=== PATIENT | male | born 1980 | race Caucasian/White ===

== ENCOUNTER → 2018-04-06 | Outpatient (CLI) | payer OTHER ==
[~2018-04-06] MED LIST: NONE PER PT
[2018-04-06 09:30] LABS: BASOPHILS # (AUTO) 0.04 x10^3/uL (0-0.1); BASOPHILS % (AUTO) 1 % (0-1); EOSINOPHILS % (AUTO) 3 % (1-7); LYMPHOCYTES # (AUTO) 2.54 x10^3/uL (1-3.4); LYMPHOCYTES % (AUTO) 38 % (22-44); MD NO; MEAN CORPUSCULAR HEMOGLOBIN 30.4 pg (27.5-34.5); MEAN CORPUSCULAR HGB CONC 34.1 g/dL (33.2-36.2); MEAN CORPUSCULAR VOLUME 89.1 fL (81-97); MEAN PLATELET VOLUME 8.4 fL (7.4-10.4); MONOCYTES # (AUTO) 0.46 x10^3/uL (0.2-0.8); MONOCYTES % (AUTO) 7 % (2-9); NEUTROPHILS % (AUTO) 51 % (42-75); PLATELET COUNT 229 x10^3/uL (130-400); RED BLOOD COUNT 5.28 x10^6/uL (4.38-5.82); RED CELL DISTRIBUTION WIDTH 13.6 % (9.4-14.8)
[2018-04-06 09:40] LABS: INTERNATIONAL NORMALIZED RATIO 1.01 (0.93-1.1); PROTHROMBIN TIME 10.7 Seconds (9.6-11.5)
[2018-04-06 09:42] LABS: ANION GAP 7 mmol/L (5-15); CHLORIDE 109 mmol/L (98-107); CREATININE 1.08 mg/dL (0.7-1.3)
== END | disposition home or self-care (01) ==
LOC: STAR 08:42
PROVIDERS: ATTEND Neurological Surgery
DX: Z01.818 Encounter for other preprocedural examination (principal); M48.062 Spinal stenosis, lumbar region with neurogenic claudication
CPT/HCPCS: 36415; 71046; 80048; 85025; 85610; 85730; 93005

== ENCOUNTER 2018-04-20 07:09 | Day surgery (SDC) | payer OTHER ==
[~2018-04-20] VITALS: Ht 175.3 cm; Wt 102.0 kg
[~2018-04-20 07:09] MED LIST changes: +BACITRACIN 50,000 UNIT ONE; +BUPIVACAINE/PF-EPI 0.5% 1:200K ONE; +THROMBIN 5,000 UNIT VIAL TP ONE
[2018-04-20] MEDS ORDERED: LACTATED RINGERS 1,000 ML IV SCH (07:44)
[2018-04-20 07:50] VITALS: BP 141/86
[2018-04-20] MEDS ORDERED: ACETAMINOPHEN 500 MG TABLET PO ONE (08:00)
[2018-04-20] MEDS ORDERED: SCOPOLAMINE PATCH, 1.5MG PATCH.TD72 TD ONE (08:00)
[2018-04-20] MEDS ORDERED: GABAPENTIN 300 MG CAPSULE PO ONE (08:00)
[2018-04-20] MEDS ORDERED: OxyconTIN ER 20 MG TAB.ER PO ONE (08:00)
[2018-04-20] MEDS ORDERED: FENTANYL PF 250 MCG/5ML ONE (09:33)
[2018-04-20] MEDS ORDERED: MIDAZOLAM 1 MG/ML, 2ML ONE (09:33)
[2018-04-20] MEDS ORDERED: ROCURONIUM 10MG/ML,5ML ONE (09:39)
[2018-04-20] MEDS ORDERED: CEFAZOLIN 1,000 MG ONE (09:39)
[2018-04-20] MEDS ORDERED: PROPOFOL 10 MG/ML, 20ML ONE (09:39)
[2018-04-20] MEDS ORDERED: ONDANSETRON 2MG/ML, 2ML ONE (09:39)
[2018-04-20] MEDS ORDERED: DEXAMETHASONE 4 MG/ML, 5ML ONE (09:39)
[2018-04-20] MEDS ORDERED: NEOSTIGMINE 1 MG/ML, 10ML ONE (10:12)
[2018-04-20] MEDS ORDERED: GLYCOPYRROLATE 0.2MG/1ML, 5ML ONE (10:12)
[2018-04-20] MEDS ORDERED: OXYcodone 5 MG/5 ML ORAL.SOL UDC PO PRN (11:00)
[2018-04-20] MEDS ORDERED: FENTANYL PF 100 MCG/2ML IV PRN (11:00)
[2018-04-20] MEDS ORDERED: MEPERIDINE/PF 25MG/0.5ML IVPush PRN (11:00)
[2018-04-20] MEDS ORDERED: HALOPERIDOL 5 MG/ML IV PRN (11:00)
[2018-04-20] MEDS ORDERED: HYDROmorphone 2 MG/ML, 1ML IVPush PRN (11:00)
[2018-04-20] MEDS ORDERED: DIAZEPAM 5 MG/ML, 2ML IVPush PRN (11:00)
[2018-04-20] MEDS ORDERED: hydrALAzine 20 MG/ML, 1ML IV PRN (11:00)
[2018-04-20] MEDS ORDERED: PROMETHAZINE 25 MG/ML, 1ML IV PRN (11:00)
[2018-04-20] MEDS ORDERED: HYDROmorphone 2 MG/ML, 1ML ONE (11:48)
[2018-04-20] MEDS ORDERED: OXYcodone 5 MG/5 ML ORAL.SOL UDC ONE (11:48)
== END 2018-04-20 13:50 | disposition home or self-care (01) ==
LOC: OUT 07:09
PROVIDERS: ATTEND Neurological Surgery
DX: M48.061 Spinal stenosis, lumbar region without neurogenic claudication (principal); M54.16 Radiculopathy, lumbar region; Z88.0 Allergy status to penicillin
CPT/HCPCS: 63047; 72100; J0690; J1100; J1170; J2250; J2405; J2704; J2710; J3010; J3490; J7120

== ENCOUNTER 2019-09-13 00:05 | Emergency (ER) | payer OTHER ==
[~2019-09-13] VITALS: Ht 175.3 cm; Wt 84.1 kg
[~2019-09-13 00:05] MED LIST changes: -BACITRACIN 50,000 UNIT ONE; -BUPIVACAINE/PF-EPI 0.5% 1:200K ONE; -THROMBIN 5,000 UNIT VIAL TP ONE
--- NOTE | 2019-09-13 00:22 | NUR ---
Pt transferred from [facility] for medical clearance. Per EMS, they ran on pt earlier tonight and transported to [facility] because he "just wanted a bed". Pt began very agitated when he did not receive a room immediately at [facility] and was escorted by security. Pt then walked to [facility] where he was placed on a hold. Pt states he wants to hang himself. Immediately upon arrival to , pt requesting a pillow, blanket, he needs to shower, and begins eating peanuts he brought with him. Pt instructed that he first needs to be checked in and seen by ERP. Pt belongings bagged and placed in locker. Room secured. Sitter in place for obs. Pt denies medical complaints. Pt then states "don't worry, I'm too tired to hang myself tonight." ERP aware.
--- NOTE | 2019-09-13 00:25 | NUR ---
Provider at bedside to eval.
--- NOTE | 2019-09-13 00:40 | NUR ---
LAB AT [facility] COLLECTING BLOOD, PT STATES HE CANNOT URINATE RIGHT NOW BUT WILL PROVIDE A SAMPLE LATER
--- NOTE | 2019-09-13 00:45 | NUR ---
URINE COLLECTED AND SENT TO THE LAB.
[2019-09-13 00:46] LABS: BASOPHILS # (AUTO) 0.04 x10^3/uL (0-0.1); BASOPHILS % (AUTO) 1 % (0-1); EOSINOPHILS # (AUTO) 0.23 x10^3/uL (0-0.4); EOSINOPHILS % (AUTO) 4 % (1-7); LYMPHOCYTES # (AUTO) 2.81 x10^3/uL (1-3.4); LYMPHOCYTES % (AUTO) 46 % (22-44); MD NO; MEAN CORPUSCULAR HEMOGLOBIN 29.9 pg (27.5-34.5); MEAN CORPUSCULAR HGB CONC 32.9 g/dL (33.2-36.2); MEAN PLATELET VOLUME 7.8 fL (7.4-10.4); MONOCYTES # (AUTO) 0.67 x10^3/uL (0.2-0.8); MONOCYTES % (AUTO) 11 % (2-9); NEUTROPHILS # (AUTO) 2.34 x10^3/uL (1.8-6.8); NEUTROPHILS % (AUTO) 38 % (42-75); PLATELET COUNT 218 x10^3/uL (130-400); RED BLOOD COUNT 4.59 x10^6/uL (4.38-5.82); RED CELL DISTRIBUTION WIDTH 13.7 % (9.4-14.8)
[2019-09-13 00:58] LABS: ALANINE AMINOTRANSFERASE 29 U/L (12-78); ALBUMIN 3.3 g/dL (3.4-5.0); ANION GAP 4 mmol/L (5-15); CALCIUM 7.9 mg/dL (8.5-10.1); CHLORIDE 108 mmol/L (98-107); CREATININE 1.03 mg/dL (0.7-1.3)
[2019-09-13 01:00] LABS: ALKALINE PHOSPHATASE 50 U/L (45-117); BILIRUBIN,TOTAL 0.5 mg/dL (0.2-1.0); TOTAL PROTEIN 6.9 g/dL (6.4-8.2)
[2019-09-13 01:04] LABS: SALICYLATE LEVEL < 1.7 mg/dL (2.8-20.0)
[2019-09-13 01:20] LABS: AMPHETAMINE SCREEN, URINE Positive (Negative); BARBITURATE SCREEN, URINE Negative (Negative); BENZODIAZEPINE SCREEN, URINE Negative (Negative); CANNABINOID SCREEN, URINE Negative (Negative); COCAINE SCREEN, URINE Negative (Negative); METHADONE SCREEN, URINE Negative (Negative); OPIATE SCREEN, URINE Negative (Negative)
--- NOTE | 2019-09-13 01:34 | NUR ---
PT APPEARS TO BE SLEEPING IN BED, NAD NOTED, BREATHING WITHOUT DIFFICULTY, CALL CAREY WITHIN REACH, SITTER OBSERVING FROM DAMIAN, WILL CONTINUE TO MONITOR
--- NOTE | 2019-09-13 02:56 | NUR ---
Pt appears to be sleeping comfortably in bed at this time, NAD noted, call tenorio within reach, sitter observing from hallway
--- NOTE | 2019-09-13 04:44 | NUR ---
Pt continues to rest in bed, no requests at this time, sitter observing from hallway
--- NOTE | 2019-09-13 04:54 | NUR ---
MT: SOC FROM [facility] CALLED AND STATED PT WAS TOO AGITATED TO CONTINUE WITH CONSULT. SUGGESTS HE "SLEEP A FEW HOURS LONGER AND MAYBE HE WILL BE MORE COOPERATIVE".
--- NOTE | 2019-09-13 06:16 | NUR ---
Pt resting in bed with eyes closed at this time, appears comfortable, call tenorio within reach, sitter observing from [address]
--- NOTE | 2019-09-13 07:20 | NUR ---
RECEIVED REPORT FROM BRENDA
--- NOTE | 2019-09-13 07:30 | NUR ---
PT AMBULATED TO [facility] STEADILY, DENIES SI/HI OR HX/O, STATES "I WAS JUST TIRED & WANTED A PLACE TO SLEEP".
--- NOTE | 2019-09-13 08:00 | NUR ---
PT CALMLY SLEEPING ON HOSPITAL BED, NADN, NO NEEDS AT THIS TIME, PT REMAINS IN SAFE ENVIRONMENT, SITTER IN VIEW.
[2019-09-13 08:24] VITALS: BP 99/65
--- NOTE | 2019-09-13 09:02 | NUR ---
PT SLEEPING ON HOSPITAL BED AFTER HE ATE BREAKFAST, PT CALM, COOPERATIVE & FOLLOWS COMMANDS/RESPONDS APPROP, NAD, COMFORT MEASURES PROVIDED, PT REMAINS IN SAFE ENVIRONMENT, SITTER IN VIEW.
--- NOTE | 2019-09-13 09:59 | NUR ---
PT CONTINUES TO CALMLY SLEEP ON HOSPITAL BED, NADN, NO NEEDS AT THIS TIME, PT REMAINS IN SAFE ENVIRONMENT, SITTER IN VIEW.
--- NOTE | 2019-09-13 11:01 | NUR ---
PT SLEEPING ON HOSPITAL BED, NADN, NO NEEDS AT THIS TIME, PT REMAINS IN SAFE ENVIRONMENT, SITTER IN VIEW.
--- NOTE | 2019-09-13 12:00 | NUR ---
PT CONTINUES SLEEPING ON HOSPITAL BED, NADN, NO NEEDS AT THIS TIME, PT REMAINS IN SAFE ENVIRONMENT, SITTER IN VIEW.
--- NOTE | 2019-09-13 12:50 | NUR ---
Patient refused written discharge instructions and did not care to hear verbal discharge instructions. Patient ambulatory with steady gait.
== END 2019-09-13 12:53 | disposition home or self-care (01) ==
LOC: ED 12:45
DX: F32.9 Major depressive disorder, single episode, unspecified (principal); R45.851 Suicidal ideations; F41.9 Anxiety disorder, unspecified; Z72.9 Problem related to lifestyle, unspecified
CPT/HCPCS: 36415; 80053; 80307; 85025; 99284

== ENCOUNTER 2019-11-08 22:20 | Emergency (ER) | payer SELFPAY ==
[~2019-11-08] VITALS: Ht 175.3 cm; Wt 93.4 kg
[2019-11-08 22:27] VITALS: BP 156/110
--- NOTE | 2019-11-08 22:39 | NUR ---
PT AMBUALTORY TO ROOM, ABLE TO DRESS SELF IN GOWN.
--- NOTE | 2019-11-08 22:50 | NUR ---
ERP HAS BEEN TO BEDSIDE. PT IS LAYING IN THE GURNEY SLEEPING, EYES CLOSED, RESPIRATIONS EVEN AND UNLABORED. HANDS BEHIND HIS HEAD IN POSITION OF COMFORT.
--- NOTE | 2019-11-08 22:57 | NUR ---
THIS RN TO BEDSIDE, AWAKES PT FROM SLEEPING. PT STATES "I USED METH TODAY." "THIS THING IN MY NOSE HAS BEEN BOTHERING ME SINCE BACK SX," NOTHING ABNORMAL NOTED IN NOSE. "I FEEL LIKE I SWALLOWED A FITBIT, I FEEL IT RADIATING IN MY STOMACH, LIKE SOMETHING IS LEAKING IN MY STOMACH FOR LIKE 3 WEEKS. I WENT TO THE [facility] AN HOUR AGO AND I SET OFF THE X-RAY MACHINE, BUT THAT'S ONLY EXTERNAL, THEY CAN'T TELL WHAT'S INTERNAL SO I NEED AN ULTRA SOUND. LAST TIME I FLEW TO [place] I DIDN'T GO THROUGH REGULAR SECURITY, AND I'M GOING TO FLY OUT OF HERE TOMORROW SO I NEED AN ULTRA SOUND, I FEEL IT VIBRAITING IN ME RIGHT NOW." PT EDUCATED THAT AN ULTRA SOUND HAS NOT BEEN ORDERED, PT EDUCATED ABOUT THE SIDE EFFECTS OF METH. PT STATES "IF I'M NOT GETTING AN ULTRA SOUND THAN WE'RE DONE HERE, I'M WALKING OUT." PT EDUCATED ABOUT HIS RIGHT TO LEAVE AMA. PT REMAINS LAYING IN GURNEY NO SIGNS OF DISTRESS, RESPIRATIONS EVEN AND UNLABORED.
[2019-11-08 23:13] LABS: BASOPHILS # (AUTO) 0.04 x10^3/uL (0-0.1); BASOPHILS % (AUTO) 1 % (0-1); EOSINOPHILS # (AUTO) 0.28 x10^3/uL (0-0.4); EOSINOPHILS % (AUTO) 4 % (1-7); LYMPHOCYTES # (AUTO) 2.03 x10^3/uL (1-3.4); LYMPHOCYTES % (AUTO) 31 % (22-44); MD NO; MEAN CORPUSCULAR HEMOGLOBIN 30.5 pg (27.5-34.5); MEAN CORPUSCULAR HGB CONC 33.5 g/dL (33.2-36.2); MEAN CORPUSCULAR VOLUME 91.1 fL (81-97); MEAN PLATELET VOLUME 8.4 fL (7.4-10.4); MONOCYTES # (AUTO) 0.59 x10^3/uL (0.2-0.8); MONOCYTES % (AUTO) 9 % (2-9); NEUTROPHILS # (AUTO) 3.61 x10^3/uL (1.8-6.8); NEUTROPHILS % (AUTO) 55 % (42-75); PLATELET COUNT 264 x10^3/uL (130-400); RED BLOOD COUNT 5.02 x10^6/uL (4.38-5.82); RED CELL DISTRIBUTION WIDTH 14.1 % (9.4-14.8)
--- NOTE | 2019-11-08 23:13 | NUR ---
PT NO LONGER IN ROOM, ALL BELONGINGS GONE, GOWN ON COUNTER, PULSE OX BOND WRITER COUNTER. BATHROOM CHECKED, PT NOT FOUND THERE.
[2019-11-08 23:24] LABS: ALANINE AMINOTRANSFERASE 31 U/L (12-78); ALBUMIN 3.5 g/dL (3.4-5.0); ANION GAP 7 mmol/L (5-15); CALCIUM 8.1 mg/dL (8.5-10.1); CHLORIDE 110 mmol/L (98-107); CREATININE 1.22 mg/dL (0.7-1.3)
[2019-11-08 23:26] LABS: ALKALINE PHOSPHATASE 55 U/L (45-117); BILIRUBIN,TOTAL 0.9 mg/dL (0.2-1.0); TOTAL PROTEIN 7.3 g/dL (6.4-8.2)
== END 2019-11-08 23:16 | disposition left against medical advice (07) ==
LOC: ED 23:00
DX: R10.84 Generalized abdominal pain (principal); R19.7 Diarrhea, unspecified
CPT/HCPCS: 36415; 80053; 83690; 85025; 99283

== ENCOUNTER 2019-12-05 05:01 | Emergency (ER) | payer OTHER ==
[~2019-12-05] VITALS: Ht 175.3 cm; Wt 94.8 kg
[2019-12-05 05:05] VITALS: BP 136/84
--- NOTE | 2019-12-05 05:16 | NUR ---
PT AMBULATORY TO ROOM, STEADY GAIT.
--- NOTE | 2019-12-05 06:12 | NUR ---
LATE ENTRY FOR 0530: ERP TO BEDSIDE.
== END 2019-12-05 06:13 | disposition left against medical advice (07) ==
LOC: ED 05:22
DX: B35.4 Tinea corporis (principal); F23 Brief psychotic disorder
CPT/HCPCS: 99283

== ENCOUNTER 2020-09-01 12:22 | Inpatient (IN) | payer MEDICAID, OTHER ==
[~2020-09-01] VITALS: Ht 172.7 cm; Wt 90.0 kg
[2020-09-01] MEDS ORDERED: BISACODYL 10 MG SUPP PR PRN (16:00)
[2020-09-01] MEDS ORDERED: POLYETHYLENE GLYCOL 17 GM PACKET PO PRN (16:00)
[2020-09-01] MEDS ORDERED: ONDANSETRON ODT 4 MG PO PRN (16:00)
[2020-09-01] MEDS ORDERED: DOCUSATE 100 MG CAPSULE PO PRN (16:00)
[2020-09-01] MEDS: PLEASE ENTER HEIGHT AND WEIGHT MC SCH (16:30)
[2020-09-01 17:09] VITALS: BP 146/92
[2020-09-01] MEDS ORDERED: NICOTINE 14MG/24 HR PATCH.TD24 TD SCH (18:30)
[2020-09-02] MEDS: PLEASE ENTER HEIGHT AND WEIGHT MC SCH ×3 (00:30→13:58)
[2020-09-02 06:23] LABS: FREE T4 (FREE THYROXINE) 0.88 ng/dL (0.76-1.46); LDL/HDL RATIO 1.5 (0.5-3.0)
[2020-09-02 07:36] VITALS: BP 121/79
[2020-09-02] MEDS: NICOTINE 14MG/24 HR PATCH.TD24 TD SCH (09:00)
[2020-09-02] MEDS: RISPERIDONE 0.5 MG TABLET PO SCH ×2 (13:58→20:38)
[2020-09-02 16:15] LABS: MICROSCOPIC NOT IND
[2020-09-02] MEDS: BENZTROPINE 1 MG TABLET PO SCH (20:38)
[2020-09-03 07:25] VITALS: BP 116/73
[2020-09-03] MEDS: RISPERIDONE 0.5 MG TABLET PO SCH ×2 (08:17→20:43)
[2020-09-03] MEDS: ACETAMINOPHEN 325 MG TABLET PO PRN (08:47)
[2020-09-03] MEDS: NICOTINE 14MG/24 HR PATCH.TD24 TD SCH (09:00)
[2020-09-03 19:34] VITALS: BP 114/72
[2020-09-03] MEDS: BENZTROPINE 1 MG TABLET PO SCH (20:43)
[2020-09-04 07:40] VITALS: BP 107/72
[2020-09-04] MEDS: NICOTINE 14MG/24 HR PATCH.TD24 TD SCH (09:00)
[2020-09-04] MEDS: RISPERIDONE 0.5 MG TABLET PO SCH ×2 (09:03→20:36)
[2020-09-04] MEDS: ACETAMINOPHEN 325 MG TABLET PO PRN (15:35)
[2020-09-04 19:15] VITALS: BP 122/74
[2020-09-04] MEDS: BENZTROPINE 1 MG TABLET PO SCH (20:36)
[2020-09-05 07:56] VITALS: BP 121/89
[2020-09-05] MEDS: RISPERIDONE 0.5 MG TABLET PO SCH (08:28)
[2020-09-05] MEDS: NICOTINE 14MG/24 HR PATCH.TD24 TD SCH (08:29)
[2020-09-05] MEDS ORDERED: NICO-486 TD (13:40)
[2020-09-05] MEDS ORDERED: BENZ1TAB61 PO (13:40)
[2020-09-05] MEDS ORDERED: RISP0.5T62 PO (13:40)
== END 2020-09-05 14:14 | disposition home or self-care (01) | DRG 885 ==
LOC: 3E 15:22
PROVIDERS: ADMIT Psychiatry & Neurology Psychosomatic Medicine; ATTEND Psychiatry & Neurology Psychosomatic Medicine
DX: F25.9 Schizoaffective disorder, unspecified (principal); F15.259 Other stimulant dependence with stimulant-induced psychotic disorder, unspecified; F17.210 Nicotine dependence, cigarettes, uncomplicated; Z88.0 Allergy status to penicillin
CPT/HCPCS: 36415; 71045; 80061; 81003; 84439; 84443; 93005

== ENCOUNTER 2020-10-24 23:22 | Observation (INO) | payer MEDICAID ==
[~2020-10-24] VITALS: Ht 175.3 cm; Wt 87.6 kg
[~2020-10-24 23:22] MED LIST changes: +BENZ1TAB61 PO; +NICO-486 TD; +RISP0.5T62 PO
[2020-10-24 23:34] VITALS: BP 142/88
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
[2020-10-25 00:28] LABS: BASOPHILS % (AUTO) 1 % (0-1); EOSINOPHILS % (AUTO) 3 % (1-7); LYMPHOCYTES % (AUTO) 43 % (22-44); MEAN CORPUSCULAR HEMOGLOBIN 30.3 pg (27.5-34.5); MEAN CORPUSCULAR HGB CONC 34.2 g/dL (33.2-36.2); MEAN PLATELET VOLUME 8.1 fL (7.4-10.4); MONOCYTES % (AUTO) 10 % (2-9); NEUTROPHILS % (AUTO) 43 % (42-75); PLATELET COUNT 261 x10^3/uL (130-400); RED BLOOD COUNT 4.51 x10^6/uL (4.38-5.82); RED CELL DISTRIBUTION WIDTH 13.4 % (9.4-14.8)
[2020-10-25 00:39] LABS: ALBUMIN 3.4 g/dL (3.4-5.0); ANION GAP 8 mmol/L (5-15); CALCIUM 8.4 mg/dL (8.5-10.1); CHLORIDE 105 mmol/L (98-107)
[2020-10-25 00:42] LABS: ALANINE AMINOTRANSFERASE 26 U/L (12-78); ALKALINE PHOSPHATASE 54 U/L (45-117); BILIRUBIN,TOTAL 2.7 mg/dL (0.2-1.0); CREATININE 0.99 mg/dL (0.7-1.3)
[2020-10-25 00:43] LABS: SALICYLATE LEVEL < 1.7 mg/dL (2.8-20.0)
--- NOTE | 2020-10-25 00:45 | NUR ---
Pt resting in bed with eyes closed, even and symmetrical chest rise, siter in view of ptKARINA
--- NOTE | 2020-10-25 03:15 | NUR ---
pt resting in bed, sitter in view, KARINA
--- NOTE | 2020-10-25 04:44 | NUR ---
pt given all belongings from [facility]
== END 2020-10-25 05:39 | disposition home or self-care (01) ==
LOC: ED 10-25 03:04 → EDIP 10-25 03:37
PROVIDERS: ADMIT Student in an Organized Health Care Education/Training Program; ATTEND Student in an Organized Health Care Education/Training Program
DX: F10.220 Alcohol dependence with intoxication, uncomplicated (principal); F14.10 Cocaine abuse, uncomplicated; F15.10 Other stimulant abuse, uncomplicated; G89.29 Other chronic pain; M54.5 Low back pain; F11.90 Opioid use, unspecified, uncomplicated; F32.0 Major depressive disorder, single episode, mild; R45.851 Suicidal ideations; Z56.0 Unemployment, unspecified; Z63.8 Other specified problems related to primary support group; Z79.899 Other long term (current) drug therapy
CPT/HCPCS: 36415; 80053; 80299; 80320; 80329; 85025; 99284; G0378; G0480